=== PATIENT | male | born 1955 | race Caucasian/White ===

== ENCOUNTER 2021-01-12 04:24 | Day surgery (SDC) | payer OTHER, BC ==
[2021-01-10 14:02] VITALS: BMI 25.9
[2021-01-12 07:25] VITALS: TEMP 97.9
[2021-01-12 09:00] VITALS: BP 140/70; PULSE 67
== END 2021-01-12 09:20 | disposition home or self-care (01) ==
LOC: JASU-ENDO 04:24
PROVIDERS: ATTEND Internal Medicine Gastroenterology
PROC: 0DJD8ZZ Inspection of Lower Intestinal Tract, Via Natural or Artificial Opening Endoscopic (ICD-10-PCS; principal; 2021-01-12 08:00)
DX: Z12.11 Encounter for screening for malignant neoplasm of colon (principal); K57.30 Diverticulosis of large intestine without perforation or abscess without bleeding; Z86.010 Personal history of colon polyps